=== PATIENT | female | born 1950 | race Caucasian/White ===

== ENCOUNTER → 2021-03-15 11:21 | Outpatient (CLI) | payer MEDICARE, OTHER, SELFPAY ==
--- NOTE | 2021-03-15 | CA_ITS ---
APPROVED REPORT Exam: Pharmacologic Technologist: Mimi De La Cruz, Ht: 5 ft 4 in Wt: 198 lbs BSA: 1.95 m2 HR: 101 bpm Rhythm: NSR, CANNOT R/O OLD SEPTAL AR Indications: Chest pain Medical History Medical History: Hyperlipidemia Medications: Omeprazole,,,,, Allergies: No known drug allergies Cardiac Risk Factors: Hyperlipidemia, FHX of CAD Stress Test Details Test: LEXISCAN HR Resting HR: 101 bpm Max Heart Rate (APMHR): 152.267298 bpm Max HR Achieved: 117 bpm Target HR (85% APMHR): 129.988746 bpm % of APMHR: 76.97 Recovery HR: 98 bpm BP Resting BP: 146/76 mmHg Max BP: 187/72 mmHg Recovery BP: 147.0/67.0 mmHg ECG Resting ECG: NSR, CANNOT R/O OLD SEPTAL AR ST Change: Horizontal ST depression Clinical Exercise duration: 04:31 min Highest Stage Achieved: Exercise capacity: 1.0 METs Stress ECG Conclusion SWITCHED FROM EXERCISE DUE TO LIMITED EXERCISE TOLERANCE. PT HAD BRIEF SOA. NO CP. UNREMARKABLE LEXISCAN STRESS. MYOVIEW IMAGES REPORTED SEPARATELY. Electronically signed by : Santiago Bella MD 03/16/2021 05:02:48
--- NOTE | 2021-03-15 11:38 | NM_ITS ---
APPROVED REPORT Exam: Nuclear Stress Test Indication: Chest pain, Fatigue, High cholesterol, Family history Patient Location: Outpatient Stress Tech: Mimi De La Cruz NM Tech:Beryl Simon, ARRT, RT (R)(N) Ht: 5 ft 4 in Wt: 198 lbs Bra Size: 38D HR: 101 bpm BP: 146/76 mmHg BSA: 1.95 m2 BMI: 33.9 History: Chest pain, Fatigue, High cholesterol, Family history Procedure: Patient received a 0.4 mg of intravenous Lexiscan, resting heart rate 101 bpm, resting blood pressure 146/76 mmHg, with Lexiscan maximum heart rate achived was 117 bpm which is Less than 85 % of the maximum predicted heart rate and blood pressure was 187/72 mmHg. With Lexiscan, patient denied any complaint of chest pain. Electrocardiogram Resting electrocardiogram shows sinus rhythm, with Lexiscan there is less than 1.[address] segment depression noted from the baseline EKG. The EKG portion of the Lexiscan is nondiagnostic. Cardiac Stress and Resting SPECT Images: Cardiac Stress and Resting SPECT images were obtained using technetium 99m Myoview 30.3 mCi stress and 10.51 mCi at rest. Gated SPECT for analysis of segmental wall motion and calculation of the ejection fraction also done. Prone images were also obtained. Cardiac stress and rest SPECT images show uniform myocardial activity without segmental perfusion abnormality, computer derived ejection fraction is over 65% with no regional wall motion abnormality, right ventricle is normal size and contractility. Conclusion: 1. The EKG portion of the Lexiscan is nondiagnostic. 2. No scintigraphic evidence of reversible ischemia seen, computer derived ejection fraction is over 65% with no regional wall motion abnormality, right ventricle is normal size and contractility. 3. Normal Lexiscan Myoview study. Electronically signed by : Santiago Bella MD 03/16/2021 05:23:12
== END ==
PROVIDERS: PCP Family Medicine; Visit Provider Family Medicine
DX: R07.9 Chest pain, unspecified (principal); G47.30 Sleep apnea, unspecified
CPT/HCPCS: 78452; 93017; A9502; G0399; J2785